=== PATIENT | female | born 1975 ===

== ENCOUNTER → 2017-08-11 | Outpatient (CLI) | payer OTHER ==
[~2017-08-11] VITALS: Ht 152.4 cm; Wt 60.8 kg
[~2017-08-11] MED LIST: ALLEGRA ALLERGY60 MG; AMOX1TAB12 PO; ZITHROMAX200 MG PO; ZITHROMAX500 MG PO
== END | disposition home or self-care (01) ==
LOC: PPHC 09:37
DX: R09.81 Nasal congestion (principal); J02.8 Acute pharyngitis due to other specified organisms

== ENCOUNTER → 2017-08-12 | Outpatient (CLI) | payer OTHER ==
[~2017-08-12] VITALS: Ht 152.4 cm; Wt 59.0 kg
== END | disposition home or self-care (01) ==
LOC: PPHC 09:46
DX: R07.0 Pain in throat (principal)

== ENCOUNTER 2017-10-19 14:03 | Outpatient (CLI) | payer OTHER | END 2017-10-19 14:09 | disposition home or self-care (01) | LOC: SONOGRAMA 14:03 | DX: N60.19 Diffuse cystic mastopathy of unspecified breast (principal) ==

== ENCOUNTER 2018-09-12 09:52 | Outpatient (CLI) | payer OTHER | END 2018-09-12 09:57 | disposition home or self-care (01) | LOC: MAMO-SONO 09:52 | DX: R10.2 Pelvic and perineal pain (principal); N63.10 Unspecified lump in the right breast, unspecified quadrant; N63.20 Unspecified lump in the left breast, unspecified quadrant; Z12.31 Encounter for screening mammogram for malignant neoplasm of breast; N64.4 Mastodynia; N60.11 Diffuse cystic mastopathy of right breast ==

== ENCOUNTER 2020-02-27 14:14 | Outpatient (CLI) | payer OTHER | END 2020-02-27 14:30 | disposition home or self-care (01) | LOC: MAMO-SONO 14:14 | PROVIDERS: ATTEND Obstetrics & Gynecology Maternal & Fetal Medicine | DX: Z12.31 Encounter for screening mammogram for malignant neoplasm of breast (principal); N63.10 Unspecified lump in the right breast, unspecified quadrant; N63.20 Unspecified lump in the left breast, unspecified quadrant; N64.4 Mastodynia; N60.11 Diffuse cystic mastopathy of right breast ==

== ENCOUNTER 2021-03-01 09:23 | Outpatient (CLI) | payer OTHER | END 2021-03-01 09:28 | disposition home or self-care (01) | LOC: SONOGRAMA 09:23 | PROVIDERS: ATTEND Obstetrics & Gynecology Maternal & Fetal Medicine | DX: N84.0 Polyp of corpus uteri (principal) ==

== ENCOUNTER 2021-04-26 10:24 | Outpatient (CLI) | payer OTHER | END 2021-04-29 14:34 | disposition home or self-care (01) | LOC: MAMO-SONO 10:24 | PROVIDERS: ATTEND Obstetrics & Gynecology Maternal & Fetal Medicine | DX: D24.1 Benign neoplasm of right breast (principal); D24.2 Benign neoplasm of left breast; Z12.31 Encounter for screening mammogram for malignant neoplasm of breast ==

== ENCOUNTER 2022-01-07 08:43 | Outpatient (CLI) | payer OTHER | END 2022-01-07 08:56 | disposition home or self-care (01) | LOC: SONOGRAMA 08:43 | PROVIDERS: ATTEND Specialist | DX: D17.23 Benign lipomatous neoplasm of skin and subcutaneous tissue of right leg (principal) ==

== ENCOUNTER 2022-02-08 05:10 | Day surgery (SDC) | payer OTHER ==
[~2022-02-08] VITALS: Ht 160 cm; Wt 63.5 kg
[~2022-02-08 05:10] MED LIST changes: +FLONASE16 GM NS
== END 2022-02-08 14:00 | disposition home or self-care (01) ==
LOC: CIR.AMB 05:10
PROVIDERS: ATTEND Specialist
DX: D17.23 Benign lipomatous neoplasm of skin and subcutaneous tissue of right leg (principal); Z20.822 Contact with and (suspected) exposure to COVID-19; Z86.16 Personal history of COVID-19

== ENCOUNTER → 2023-04-20 | Outpatient (CLI) | payer OTHER | END | disposition home or self-care (01) | LOC: RAD 11:10 | PROVIDERS: ATTEND Physical Medicine & Rehabilitation | DX: M79.672 Pain in left foot (principal) ==

== ENCOUNTER 2023-05-24 09:10 | Day surgery (SDC) | payer OTHER ==
[~2023-05-24 09:10] MED LIST changes: +SYNTHROID50 MCG PO
== END 2023-05-24 19:00 | disposition home or self-care (01) ==
LOC: CIR.AMB 09:10
PROVIDERS: ATTEND Obstetrics & Gynecology
DX: D27.1 Benign neoplasm of left ovary (principal); D28.2 Benign neoplasm of uterine tubes and ligaments; D39.12 Neoplasm of uncertain behavior of left ovary; Z20.822 Contact with and (suspected) exposure to COVID-19